=== PATIENT | female | born 1995 | race Caucasian/White ===

== ENCOUNTER → 2016-12-31 | Outpatient (CLI) | payer BC | END | disposition home or self-care (01) | LOC: C.PAPS 09:47 | PROVIDERS: ATTEND Obstetrics & Gynecology | DX: Z01.419 Encounter for gynecological examination (general) (routine) without abnormal findings (principal) ==

== ENCOUNTER → 2017-02-11 | Outpatient (CLI) | payer BC ==
--- NOTE | 2017-02-11 11:56 | DIAGNOSTIC IMAGING REPORT ---
FUSION CT SINUSES W/O HISTORY: 21 years-old Female J32.9 Chronic sinusitis COMPARISON: Radiographs of the sinuses 02/29/2012 TECHNIQUE: Multiple axial CT images of the paranasal sinuses were obtained without contrast. Keynoir images also submitted. A dose lowering technique was used consistent with the principals of RENNY. FINDINGS: The mastoid air cells and middle ear cavities are clear. There is mild mucoperiosteal thickening of the bilateral maxillary sinuses. There is severe mucosal thickening of the right sphenoid sinus which is nearly completely opacified containing central bubbly secretions. There is only minimal mucosal thickening of the left sphenoid sinus. Minimal mucosal thickening is present within the inferior frontal sinuses which are otherwise clear. There is mild anterior and moderate posterior ethmoid sinus disease with mucosal thickening and bubbly secretions of the posterior ethmoid air cells. There is mild left and moderate right narrowing of the sphenoethmoidal recesses secondary to aforementioned mucosal disease. The bilateral frontoethmoidal recesses are patent. There is minimal mucosal thickening of the right maxillary ostiomeatal unit and the left is patent. Nasal septum is midline. The cyndie homer appears normal. No Rosangela cell identified. No large damaris bullosa. Soft tissues are unremarkable. Image intracranial structures demonstrate no acute abnormality. IMPRESSION: 1. Paranasal sinus disease as detailed above, most pronounced within the right sphenoid and bilateral posterior ethmoid air cells resulting in narrowing of the bilateral sphenoethmoidal recesses. 2. Only mild mucoperiosteal thickening of the bilateral maxillary sinuses and inferior frontal sinuses with patency of the maxillary ostiomeatal units. The above report was generated using voice recognition software. It may contain grammatical, syntax or spelling errors. Electronically signed by: Juan Hammer M.D. 02/11/2017 11:55 AM Dictated Date/Time: 02/11/2017 11:47 AM
== END | disposition home or self-care (01) ==
LOC: C.CTS 11:12
DX: J32.9 Chronic sinusitis, unspecified (principal)

== ENCOUNTER → 2017-03-05 | Outpatient (CLI) | payer BC ==
[~2017-03-05] MED LIST: BCPILLS PO; LEVO1TAB34 PO; PRED10TA PO
[2017-03-05 14:37] LABS: BASO % 0.6 %; BASO ABS # 0.05 K/uL (0-0.2); EOS ABS # 0.09 K/uL (0-0.5); HEMATOCRIT 37.9 % (37-47); HEMOGLOBIN 12.5 g/dL (12.0-16.0); IG# 0.04 K/uL (0.00-0.02); LYMPH % 26.9 %; LYMPH ABS # 2.41 K/uL (1.2-3.4); MEAN CELL VOLUME 90.2 fL (80-100); MEAN CORPUSCULAR HEMOGLOBIN 29.8 pg (25-34); MEAN PLATELET VOLUME 9.8 fL (7.4-10.4); MONO % 6.3 %; MONO ABS # 0.56 K/uL (0.11-0.59); NEUT % 64.8 %; NEUT ABS # 5.81 K/uL (1.4-6.5); PLATELET COUNT 203 K/uL (130-400); RED CELL DISTRIBUTION WIDTH CV 13.5 % (11.5-14.5); RED CELL DISTRIBUTION WIDTH SD 44.6 fL (36.4-46.3); WHITE BLOOD COUNT 8.96 K/uL (4.8-10.8)
[2017-03-05 14:46] LABS: PTT PATIENT 25.7 SECONDS (21.0-31.0)
[2017-03-05 15:02] LABS: POTASSIUM 3.5 mmol/L (3.5-5.1)
== END | disposition home or self-care (01) ==
LOC: C.LAB 13:21
DX: Z01.818 Encounter for other preprocedural examination (principal)

== ENCOUNTER → 2017-03-22 | Day surgery (SDC) | payer BC ==
[2017-02-20 15:26] VITALS: Ht 160 cm; Wt 61.4 kg
[~2017-03-22] VITALS: Ht 160 cm; Wt 61.4 kg
[~2017-03-22] MED LIST changes: +ATROPINE SULFATE 0.1 MG/ML 5ML SYR IV PRN; +CLINDAMYCIN PHOS 150 MG/ML 2 ML VIAL IV SCH; +DEXAMETHASONE SOD INJ 4 MG/ML VIAL IV PRN; +DEXAMETHASONE SOD INJ 4 MG/ML VIAL ONE; +EpHEDrine SULFATE INJ 50 MG/ML AMP IV PRN; +EpINEphrine INJ 1MG/ML AMP 1 MG/ML AMP ONE; +FENTANYL CITRATE INJ 50 MCG/1 ML 2 ML VIAL IV PRN; +FENTANYL CITRATE INJ 50 MCG/1 ML 2 ML VIAL ONE; +GLYCOPYRROLATE INJ 0.2 MG/ML VIAL ONE; +HYDROCODONE/ACETAMIN 5/325MG TAB PO PRN; +KETOROLAC TROMETHAMINE 30 MG/ML VIAL IV. PRN; +LABETALOL HCL IV 5 MG/ML 20ML IV PRN; +LACTATED RINGER'S 1000ML 1,000 ML IV SCH; +LIDOCAINE 4% MPF SOAK 5 ML = 1 DOSE TOP ONE; +LIDOCAINE/EPINEPHRINE 1% INJ 50 ML VIAL ONE; +METOCLOPRAMIDE HCL INJ 5 MG/ML 2 ML VIAL IV PRN; +MIDAZOLAM HCL 1 MG/ML 2ML VIAL ONE; +MoRPHine SULFATE 10 MG/ML CARP/VIAL IV PRN; +NEOSTIGMINE METHYLSULFATE 5 MG/5 ML SYR ONE; +ONDANSETRON INJ 2 MG/ML 2 ML VIAL IV PRN; +ONDANSETRON INJ 2 MG/ML 2 ML VIAL ONE; +OXYMETAZOLINE HCL 0.05% NA SPR 15 ML BTL PRN; +OXYMETAZOLINE HCL 0.05% NA SPR 15 ML BTL SCH; +PHENYLEPHRINE 100MCG/ML 5ML SYR IV PRN; +PROPOFOL IV EMULSION 10 MG/ML 20 ML VIAL IV ONE
--- NOTE | 2017-03-22 12:33 | History and Physical: Surg Cnt ---
History & Physical Date Mar 22, 2017. Chief Complaint CHRONIC SINUSITIS AND BILATERAL INFERIOR TURBINATE HYPERTROPHY History of Present Illness The patient is a 22 year old female with complaints of CHRONIC SINUSITIS AND BILATERAL INFERIOR TURBINATE HYPERTROPHY UNRESPONSIVE TO MAXIMAL MEDICAL RX. Past Medical/Surgical History PMH: ABOVE PSH: S/P TONSILLECTOMY, S/P WISDOM TEETH EXTRACTION Additional History Hepatic Disease: No Endocrine Disorder: No Kidney Disease: No Hypertension: No Heart Disease: No Bleeding Tendencies: No Infectious Diseases: No Allergies Coded Allergies: Cephalexin (Verified Allergy, Unknown, rash, 03/22/17) Home Medications Scheduled Control Pills ( Control Pills), 1 TAB PO HS Physical Examination Skin: warm/dry, no rash ENT: normal ENT inspection, pharynx normal, + pertinent finding (B ITH) Head: normocephalic, atraumatic Neck: supple, no adenopathy, trachea midline Respiratory/Chest: lungs clear, normal breath sounds, no respiratory distress Cardiovascular: regular rate, rhythm, no edema, no murmur Neurologic/Psych: no motor/sensory deficits, alert, normal reflexes, oriented x 3 Diagnosis CHRONIC SINUSITIS AND BILATERAL INFERIOR TURBINATE HYPERTROPHY Plan of Treatment IMAGE-GUIDED B FESS AND INF TURB REDUCTION
--- NOTE | 2017-03-22 13:39 | [facility] Operative Report ---
Operative Report Operative Date Mar 22, 2017. Pre-Operative Diagnosis Chronic Sinusitis, Bilateral Inferior Turbinate Hypertrophy Post-Operative Diagnosis Same Procedure(s) Performed Bilateral Image Guided Endoscopic Sinus Surgery With Bilateral Inferior Turbinate Reduction Surgeon Dr. Cline Risk Modeler Surgeon(s) None Estimated Blood Loss 5 mL Findings 1. MODERATE MUCOSAL THICKENING RIGHT SPHENOID SINUS 2. MILD MUCOSAL THICKENING OF ALL OF THE OTHER PARANASAL SINUSES 3. MODERATE B ITH Specimens None I attest to the content of the Intraoperative Record and any orders documented therein. Any exceptions are noted below.
--- NOTE | 2017-03-22 13:41 | Discharge Instructions ---
Discharge Instructions Date of Service Mar 22, 2017. Admission Reason for Admission: Chronic Sinusitis, Hypertrophy Inferior Nasal Turb Discharge Discharge Diagnosis / Problem: SAME Discharge Goals Goal(s): Therapeutic intervention Activity Recommendations Activity Limitations: as noted below LIGHT ACTIVITY FOR 2 WEEKS; NO DRIVING WHILE ON NORCO . Current Hospital Diet Patient's current hospital diet: Discharge Diet Recommended Diet: Regular Diet Procedures Procedures Performed: Bilateral Image Guided Endoscopic Sinus Surgery With Bilateral Inferior Turbinate Reduction Pending Studies Studies pending at discharge: no Medical Emergencies . Who to Call and When: Medical Emergencies: If at any time you feel your situation is an emergency, please call 911 immediately. . Non-Emergent Contact Non-Emergency issues call your: Surgeon . . "Provider Documentation" section prepared by Chas Cline. . VTE Core Measure Inpt VTE Proph given/why not?: SCD's
[2017-03-22 14:21] VITALS: TEMP 36.8
[2017-03-22 14:58] VITALS: BP 112/73; PULSE 51; O2SAT 98
--- NOTE | 2017-03-22 15:01 | OPERATIVE REPORT ---
DATE OF OPERATION: 03/22/2017 PREOPERATIVE DIAGNOSES: 1. Chronic rhinosinusitis. 2. Bilateral inferior turbinate hypertrophy. POSTOPERATIVE DIAGNOSES: 1. Chronic rhinosinusitis. 2. Bilateral inferior turbinate hypertrophy. PROCEDURES: iExplore fusion image guided endoscopic sinus surgery consisting of: 1. Bilateral maxillary antrostomies. 2. Bilateral complete ethmoidectomies. 3. Bilateral balloon sinuplasty assisted frontal sinusotomies. 4. Bilateral sphenoidotomies. 5. Bilateral inferior outfracture and turbinoplasty. SURGEON: Dr. Chas Cline. ANESTHESIA: General endotracheal. ESTIMATED BLOOD LOSS: 5 mL FINDINGS: 1. Moderate mucosal thickening involving the right sphenoid sinus. 2. Mild mucosal thickening involving all the other paranasal sinuses bilaterally. 3. Moderate bilateral inferior turbinate hypertrophy. SPECIMENS: None. COMPLICATIONS: None. INDICATIONS FOR THE PROCEDURE: The patient is a pleasant 22-year-old female with a history of recurrent acute and chronic rhinosinusitis, which has been unresponsive to maximal medical therapy including systemic antibiotics and steroids. A posttreatment fusion CT scan of the sinuses revealed pansinusitis with most of the significant findings involving the right posterior ethmoid air cells and sphenoid sinus. She presents for the above-mentioned procedures on an outpatient elective basis. DESCRIPTION OF PROCEDURE: After informed consent had been obtained from the patient, the patient was wheeled to the operating room and placed on the operating table in the supine position. Monitors were placed. After induction of general endotracheal anesthesia, the patient was prepped in usual fashion for image guided endoscopic sinus surgery. The iExplore fusion headset was placed over the forehead and was registered, verified, and calibrated and used throughout the case, especially the frontal and sphenoid sinus portions. Lidocaine and epinephrine pledgets were placed in the bilateral nasal cavities and pressure applied. The left-sided pledget was removed. A freer elevator was used to medialize the middle turbinate. The middle turbinate and uncinate process were injected with 1% lidocaine with 1:100,000 epinephrine. A lidocaine and epinephrine pledget was then placed into the left middle meatus. The left-sided pledgets were removed. An uncinatectomy was performed using a freer elevator, straight Thru-Cut forceps, and powered instrumentation. The natural ostium of the maxillary sinus was identified and this was enlarged anteriorly, inferiorly, and posteriorly using backbiting forceps and powered instrumentation. A complete ethmoidectomy was then performed using powered instrumentation. A left sphenoidotomy was performed via a transnasal approach and the medial and inferior aspect of the sphenoid sinus ostium was enlarged using powered instrumentation. A curved frontal sinus suction was then used to cannulate the left frontal sinus. A #6 frontal sinus balloon was then inflated to 12 atmospheres of pressure in 2 different locations to dilate the frontal recess tract. The balloon was removed. Powered instrumentation was used to perform a left frontal sinusotomy. Of note, there was mild mucosal thickening involving all of the above-mentioned paranasal sinuses. A lidocaine and epinephrine pledget was then placed into the left ethmoid cavity. The right side was then addressed in a similar fashion with similar intraoperative findings except on this side, the right sphenoid sinus had a moderate amount of mucosal thickening. A Thompson elevator was then used to infracture and subsequently outfracture the inferior turbinates bilaterally. The inferior turbinates were injected with 1% lidocaine with 1:100,000 epinephrine. Using a 2.0 mm turbinate blade and powered instrumentation, bilateral inferior turbinoplasties in a submucosal fashion were performed. The sinonasal cavities were then suctioned. Merogel was then placed into the bilateral ethmoid sinuses and middle meati. An orogastric tube was placed and the stomach was suctioned free of air and stomach contents. This marked the end of the case. The patient tolerated the procedure well and there were no apparent complications. The patient was extubated and transferred to the recovery room in stable condition. I attest to the content of the Intraoperative Record and any orders documented therein. Any exception s are noted below.
--- NOTE | 2017-03-22 15:05 | Anesthesia Progress Nt - [facility] ---
Anesthesia Post Op Note Date & Time Mar 22, 2017 at 15:05 Vital Signs Pain Intensity: 2 Vital Signs Past 12 Hours Date Time Temp Pulse Resp B/P (MAP) Pulse Ox O2 Delivery O2 Flow Rate FiO2 03/22/17 14:58 51 20 112/73 (86) 98 Room Air 03/22/17 14:21 36.8 53 20 124/81 (95) 100 Room Air 03/22/17 14:17 59 14 94 03/22/17 14:17 56 14 03/22/17 14:15 37.3 54 12 117/75 99 Room Air 03/22/17 14:15 117/75 03/22/17 14:12 56 17 97 03/22/17 14:12 56 17 03/22/17 14:10 114/69 03/22/17 14:07 54 17 03/22/17 14:07 53 17 98 03/22/17 14:05 117/69 03/22/17 14:02 55 23 99 03/22/17 14:02 55 23 03/22/17 14:00 116/70 03/22/17 13:57 56 17 03/22/17 13:57 56 17 99 03/22/17 13:56 69 13 03/22/17 13:56 70 13 100 03/22/17 13:55 120/68 03/22/17 13:51 67 15 03/22/17 13:51 67 15 99 03/22/17 13:50 119/61 03/22/17 13:46 37.0 85 16 124/66 99 Humidified Oxygen 6 Diffusion Mask 03/22/17 13:46 81 124/66 99 03/22/17 13:46 81 03/22/17 11:08 36.8 56 18 120/77 (91) 100 Room Air Notes Mental Status: alert / awake / arousable, participated in evaluation Pt Amnestic to Procedure: Yes Nausea / Vomiting: adequately controlled Pain: adequately controlled Airway Patency, RR, SpO2: stable & adequate BP & HR: stable & adequate Hydration State: stable & adequate Anesthetic Complications: no major complications apparent
== END | disposition home or self-care (01) ==
LOC: X.SURG 10:58
DX: J32.9 Chronic sinusitis, unspecified (principal); J34.3 Hypertrophy of nasal turbinates; Z90.89 Acquired absence of other organs; Z79.3 Long term (current) use of hormonal contraceptives

== ENCOUNTER 2024-01-26 19:15 | Inpatient (IN) ==
[2024-01-26] MEDS ORDERED: OXYTOCIN 30 UNITS/NSS 30 UNITS/500 ML BAG IV PRN (20:01)
[2024-01-26] MEDS ORDERED: LIDOCAINE 1% LOCAL 20 ML VIAL INFIL PRN (20:01)
--- NOTE | 2024-01-26 20:06 | History & Physical Report ---
Date of Service January 26, 2024 Assessment & Plan (1) Supervision of normal first : Plan: Admit to L&D. Labs, EFM, toco. Will start pitocin to augment. OK for epidural when she desires. History of Present Illness Chief Complaint: rupture of membranes Primary Care Provider: NO PCP 28yo @ 39 03/03, with gush of clear fluid around 4:15pm today. Not really feeling contractions. + movement. No vaginal bleeding. Home Medications Medication Instructions Recorded Confirmed Type kxmhkntv-[id number]-Bx-FA 1 mg 1 tab PO DAILY 01/26/24 01/26/24 History tablet Patient History Medical History (Updated 01/22/24 @ 15:43 by Leighann Fuller MD, FACOG) Varicella vaccination Surgical History (Updated 01/22/24 @ 14:44 by Hilary Hancock RN) S/P wisdom tooth extraction 2011 S/P sinus surgery 2018 Family History (Updated 12/06/23 @ 11:00 by Tiffany Alvarenga) Grandmother (Paternal) Breast cancer Father Hypertension A-fib Sister Endometriosis Crohn's disease Denies family history of Ovarian cancer Colorectal cancer Social History (Updated 12/06/23 @ 11:12 by Tiffany Alvarenga) Smoking Status: Never smoker Do You Dip or Chew Tobacco: No; Hx Alcohol Use: No Hx Substance Use: No Preferred Language: Montserratian Communication Ability: Effective Referral Agent Required: No Beliefs That Will Affect Care: None marital status: marital status details: Rigoberto Ashford(28) [phone] Current Living Situation: Spouse Current Living Situation Comment: Patient lives with spouse and a dog. current occupational status: employed current occupation: [employer] Other Information That Helps Us Care for You: No Feels Safe at Home: Yes Safety Concerns: Feels Safe At This Time Assistive Devices: None Review of Systems All systems reviewed & are unremarkable except as noted in HPI & below Physical Exam Physical Exam: FHT Cat 1 Rose Bud occasional SVE 2/80/-2, grossly ruptured. Cephalic by exam. Constitutional: WD/WN, vitals as above Respiratory: normal respiratory effort, lungs clear to auscultation no respiratory distress Cardiovascular: Rate/Rhythm: regular rate and regular rhythm Gastrointestinal (Abdomen): Inspection/Auscultation: abdomen normal to inspection Percussion/Palpation: abdomen soft; abdomen nontender Gravid. No s/s chorio or abruption. Skin: no rashes, warm and dry Psychiatric: A+Ox3, euthymic affect Results & Data Vital Signs (Past 12 Hours) Vital Signs Temp Pulse Resp BP 01/26/24 19:35 83 127/82 01/26/24 19:24 36.9 C 18 Coding Level of Care Code None Diagnoses Supervision of normal first Z34.00
[2024-01-26] MEDS ORDERED: Patient's ALLERGY Info needs ENTERED SCH (20:15)
[2024-01-26 20:23] LABS: Hematocrit (blood only) 33.6 % (37.0-47.0); Hemoglobin 11.6 g/dl (12.0-16.0); Mean Corpuscular Hemoglobin 30.4 pg (25.0-34.0); Mean Corpuscular Hgb Conc 34.5 g/dL (32.0-36.0); Mean Corpuscular Volume 88.2 fL (80.0-100.0); Mean Platelet Volume 10.8 fL (9.4-12.4); Platelet Count 178 K/uL (130-400); RDW Standard Deviation 41.5 fL (36.4-46.3); Red Blood Count 3.81 M/uL (4.20-5.40)
[2024-01-26] MEDS: LACTATED RINGER'S 1,000 ML IV SCH (20:39)
[2024-01-26] MEDS: OXYTOCIN 30 UNITS/NSS 30 UNITS/500 ML BAG IV PRN (20:39)
[2024-01-27] MEDS: fentANYL 2 MCG/ML BUPIVacaine 0.125%-NSS 100ML BAG ONE (00:37)
--- NOTE | 2024-01-27 00:54 | Anesthesiology Consultation ---
Date of Service January 27, 2024 Assessment & Plan Chart Review Chart Review: Acceptable Risk for Labor Epidural Consults Requested none History Height/Weight Height: 5 ft 3 in Weight: 79.379 kg Allergies Allergy/AdvReac Type Severity Reaction Status Date / Time No Known Allergies Allergy Unverified 01/26/24 20:17 Medications Home Medications Medication Instructions Recorded Confirmed Last Taken vdczvsht-upe-Oz-FA 1 mg 1 tab PO DAILY 01/26/24 01/26/24 01/26/24 tablet Active Medications Generic Name Dose Route Start Last Admin Trade Name Freq PRN Reason Stop Dose Admin Oxytocin 30 units in 500 mls @ 9 mls/hr 01/26/24 20:01 01/26/24 23:01 Pitocin 30 Units/Nss IV 01/28/24 20:00 0.54 units/hr .Q24H PRN 9 mls/hr Labor Induction/Augmentation Titration Protocol 0.54 UNITS/HR Lactated Ringer's 1,000 mls @ 125 mls/hr 01/26/24 20:45 01/27/24 00:24 Lr IV 01/27/24 20:44 50 mls/hr .Q8H LOUISA Infusion Past Medical History Medical History (Updated 01/22/24 @ 15:43 by Leighann Fuller MD, FACOG) Varicella vaccination Past Family History Family History (Updated 12/06/23 @ 11:00 by Tiffany Alvarenga) Grandmother (Paternal) Breast cancer Father Hypertension A-fib Sister Endometriosis Crohn's disease Denies family history of Ovarian cancer Colorectal cancer Past Surgical History Surgical History (Updated 01/22/24 @ 14:44 by Hilary Hancock RN) S/P wisdom tooth extraction 2012 S/P sinus surgery 2018 Social History Smoking Status: Never smoker Do You Dip or Chew Tobacco: No Hx Alcohol Use: No Hx Substance Use: No substance use type: does not use Physical Exam Vital Signs Last Vital Signs Temp 37.1 C 01/27/24 00:35 Pulse 80 01/27/24 00:48 Resp 18 01/27/24 00:40 BP 127/64 01/27/24 00:43 Pulse Ox 98 01/27/24 00:48 Testing Laboratory Results 01/26/24 20:10
[2024-01-27] MEDS ORDERED: fentANYL 2 MCG/ML BUPIVacaine 0.125%-NSS 100ML BAG EPI PRN (00:55)
[2024-01-27] MEDS ORDERED: diphenhydrAMINE 50 MG/ML VIAL IV PRN (00:55)
[2024-01-27] MEDS ORDERED: NALOXONE HCL 1 MG in SODIUM CHLORIDE 0.9% 1,000 ML IV PRN (00:55)
[2024-01-27] MEDS ORDERED: BUPIVACAINE 0.25% PF 30 ML VIAL EPI PRN (00:55)
[2024-01-27] MEDS ORDERED: NALBUPHINE HCL INJ 10 MG/ML AMP IV PRN (00:55)
[2024-01-27] MEDS ORDERED: ROPIVACAINE 0.5% PF 5 MG/ML 20 ML VIAL EPI PRN (00:55)
[2024-01-27] MEDS ORDERED: NALOXONE HCL 0.4 MG/1 ML VIAL/CARP IV PRN (00:55)
[2024-01-27] MEDS ORDERED: LIDOCAINE 2% MPF LOCAL 5 ML VIAL EPI PRN (00:55)
[2024-01-27] MEDS ORDERED: ePHEDrine sulfate 50 MG/ML AMP IV PRN (00:55)
[2024-01-27] MEDS ORDERED: SODIUM CHLORIDE 0.9% PF INJ 10 ML VIAL EPI PRN (00:55)
[2024-01-27] MEDS: fentaNYL citrate PF 100 MCG/2 ML VIAL ONE (01:07)
[2024-01-27] MEDS: LIDOCAINE 2%/EPINEPHRINE 1:200,000 20 ML PF ONE (01:08)
[2024-01-27] MEDS: ePHEDrine sulfate 50 MG/ML AMP ONE (01:08)
[2024-01-27] MEDS: BUPIVACAINE 0.25% PF 30 ML VIAL ONE (01:08)
[2024-01-27] MEDS: SODIUM CHLORIDE 0.9% PF INJ 10 ML VIAL ONE (01:08)
[2024-01-27] MEDS: fentaNYL citrate PF 100 MCG/2 ML VIAL EPI PRN (03:52)
--- NOTE | 2024-01-27 03:55 | Anesthesia Procedure Note ---
Date of Service January 27, 2024 Anesthesia Epidural Re-Dose Vital Signs Temp Pulse Resp BP Pulse Ox 37.1 C 95 H 18 119/70 97 01/27/24 02:37 01/27/24 03:53 01/27/24 02:37 01/27/24 03:45 01/27/24 03:53 Notes Pain Intensity: 7 Dilatation (cm): 9.0 Effacement (%): 100 Called by nursing to evaluate epidural as the patient is having increased pain. The epidural was re-dosed with the following medications (all medications via epidural route) after negative aspiration of the epidural catheter for CSF/HEME. 2% lidocaine 5ml with fentanyl 100mcg. After Epidural Re-Dose Mental Status: alert / awake / arousable Pain: improving with treatment Airway Patency, RR, SpO2: stable & adequate BP & HR: stable & adequate
[2024-01-27] MEDS: BUPIVACAINE 0.25% PF 30 ML VIAL EPI STA (04:08)
[2024-01-27] MEDS: fentaNYL citrate PF 100 MCG/2 ML VIAL EPI STA (04:08)
[2024-01-27] MEDS: LIDOCAINE 2%/EPINEPHRINE 1:200,000 20 ML PF EPI STA (04:09)
[2024-01-27] MEDS: SODIUM CHLORIDE 0.9% PF INJ 10 ML VIAL EPI STA (04:09)
--- NOTE | 2024-01-27 06:39 | Delivery Summary ---
Vaginal Delivery Summary Date of Service January 27, 2024 Vaginal Delivery Summary and 1st Degree LAC Vaginal Delivery Summary: Pre-delivery diagnoses: 28yo @ 39 2/, spontaneous labor Post-delivery diagnoses: same Procedure: spontaneous vaginal delivery Surgeon: Nita Rust DO Complications: none Findings: Viable female . Apgars: 7/9. Weight pending, please see nursery records Estimated QBL: 160cc Description of delivery: The patient progressed to complete with epidural anesthesia. She then began to push. She spontaneously vaginally delivered a viable from the cephalic presentation. The head delivered in ISIDORO position. The anterior shoulder delivered, followed by the posterior shoulder, followed by the body. The baby was placed on mother's abdomen and a spontaneous cry was heard. Delayed cord clamping was employed, and the cord was doubly clamped and cut. Cord blood was obtained. The placenta was delivered spontaneously intact with a 3-vessel cord. The uterus and vagina were swept of clots and debris. IV pitocin was given. The uterus became firm. The cervix, vagina, and perineum were inspected. Right periurethral laceration and 1st degree perineal laceration repaired with 3-0 Vicryl. Red rubber catheter placed during repair - sutures far from urethra. Excellent hemostasis was observed. The mother and baby are recovering in stable and good condition in the room. Sponge, needle and instrument counts were correct x 2. Nita Rust DO [facility] Vaginal Delivery Charge Vaginal Delivery Codes: 43793 global code for the antepartum, delivery, and post- Delivery Type Details: and 1st Degree LAC
[2024-01-27] MEDS ORDERED: ACETAMINOPHEN 325 MG TAB PO PRN (06:47)
[2024-01-27] MEDS ORDERED: oxyCODONE/ACETAMINOPHEN 5mg/325mg TAB PO PRN (06:47)
[2024-01-27] MEDS ORDERED: HYDROCORTISONE ACETATE 25 MG SUPP PR PRN (06:47)
[2024-01-27] MEDS ORDERED: OXYTOCIN 30 UNITS/NSS 30 UNITS/500 ML BAG IV PRN (06:47)
[2024-01-27] MEDS: ONDANSETRON INJ 2 MG/ML 2 ML VIAL IV PRN (07:12)
--- NOTE | 2024-01-27 08:58 | Anesthesia Procedure Note ---
Date of Service January 27, 2024 Anesthesia Post Epidural Note Vital Signs Vital Signs: Temp Pulse Resp BP Pulse Ox O2 Del Method 37.3 C 84 16 133/73 93 Room Air 01/27/24 07:00 01/27/24 08:50 01/27/24 07:00 01/27/24 08:50 01/27/24 06:25 01/27/24 06:35 Notes Mental Status: alert / awake / arousable Nausea / Vomiting: adequately controlled Pain: adequately controlled Airway Patency, RR, SpO2: stable & adequate BP & HR: stable & adequate Hydration State: stable & adequate Neuraxial Anesthesia: was administered and sensory block is resolving Anesthetic Complications: no major complications apparent and Pt Satisfied with anesthetic care Epidural: Removed without complications and With tip intact
[2024-01-27] MEDS: BENZOCAINE 20% SPRY 85 APPLN/85 GM CAN EXT PRN (10:19)
[2024-01-27] MEDS: PRENATAL VITAMIN 1 TAB PO SCH (10:19)
[2024-01-27] MEDS: DOCUSATE SODIUM 100 MG CAP PO SCH (10:19)
[2024-01-27] MEDS: DIPHTHER/TETAN/PERTUS Vaccine (Tdap, Adol/Adult) 0.5mL IM ONE (11:14)
[2024-01-27] MEDS: IBUPROFEN 600 MG TAB PO PRN (13:50)
--- NOTE | 2024-01-28 05:54 | Obstetrical Progress Note ---
Date of Service January 28, 2024 Assessment & Plan (1) Encounter for care and examination after delivery: Plan Encourage ambulation Encourage breast feeding Pain meds as needed Anticipate DC to home on 01/29/24 Admission and Anticipated Discharge Date Admission Date: January 26, 2024 Supervising Physician Co-Signing Physician Notes Patient seen with resident and agree with the above findings and plan. Patient doing well. Routine care Subjective Pt is 28 yo post- day 1 s/p at 39w1d Ambulation:In and out of room Voiding:voiding normally Passing gas: yes BM: no Diet tolerance:regular diet Lochia:bloody, no clots Feeding type: breast Current pain level: 0-3 /10 improved with ibuprofen Resting comfortably this morning in NAD. Denies BETTENCOURT, CP, SOB, V/D, LE pain/swelling. Pt reports nausea post delivery, but better this morning. Review of Systems Review of Systems: As per HPI Physical Exam Constitutional: WD/WN, vitals as above Respiratory: normal respiratory effort, lungs clear to auscultation Cardiovascular: Rate/Rhythm: regular rate and regular rhythm Extremities: + edema (trace at bilateral ankles) Gastrointestinal (Abdomen): normal bowel sounds, soft, nontender, no hepatosplenomegaly Uterine fundus firm and at 1 cm below umbilicus Neurologic: PERRL, EOMI, accommodation nl, no face palsy, no dysarthria Moving all 4 extremities on command Psychiatric: A+Ox3, euthymic affect Results & Data Vital Signs (Past 12 Hours) Vital Signs Temp Pulse Resp BP O2 Del Method 01/28/24 04:20 36.8 C 75 16 113/71 Room Air 01/27/24 23:41 36.6 C 73 18 120/71 01/27/24 20:15 36.6 C 76 18 134/74 Resident Activity Tracking Resident Involvement: Resident Care Provided Care Provided: Adult Hospital Medicine
[2024-01-28 06:21] LABS: Hematocrit (blood only) 31.3 % (37.0-47.0); Hemoglobin 10.5 g/dl (12.0-16.0)
[2024-01-28] MEDS: bisacodyL 5 MG TABEC PO SCH (21:34)
[2024-01-29] MEDS ORDERED: bisacodyL 10 MG SUPP PR PRN
[2024-01-29 00:16] VITALS: TEMP 97.9
--- NOTE | 2024-01-29 05:17 | Obstetrical Progress Note ---
Date of Service January 29, 2024 Assessment & Plan (1) Encounter for care and examination after delivery: Plan Encourage ambulation Encourage breast feeding Pain meds as needed Anticipate DC to home today Admission and Anticipated Discharge Date Admission Date: January 26, 2024 Supervising Physician Co-Signing Physician Notes Resident Physician Supervision Note: I interviewed and examined the patient. Discussed with Dr. Mayers and agree with findings and plan as documented in the note. Any exceptions or clarifications are listed here: PP2 s/p , dc home Documented By: Iveth Marie MD Subjective Pt is 28 yo post- day 2 s/p at 39w1d Ambulation:In and out of room Voiding:voiding normally Passing gas: yes BM: yes Diet tolerance:regular diet Lochia:bloody, no clots Feeding type: breast Current pain level: 0-2 /10 improved with ibuprofen Resting comfortably this morning in NAD. Denies BETTENCOURT, CP, SOB, V/D, LE pain/swelling. Pt reports nausea post delivery, but better this morning. Review of Systems Review of Systems: As per HPI Physical Exam Constitutional: WD/WN, vitals as above Respiratory: normal respiratory effort, lungs clear to auscultation Cardiovascular: RRR, no murmur, no edema Rate/Rhythm: regular rate and regular rhythm Extremities: + edema (trace at bilateral ankles) Gastrointestinal (Abdomen): normal bowel sounds, soft, nontender, no hepatosplenomegaly Uterine fundus if firm and 2 cm below umbilicus Neurologic: PERRL, EOMI, accommodation nl, no face palsy, no dysarthria Psychiatric: A+Ox3, euthymic affect Results & Data Vital Signs (Past 12 Hours) Vital Signs Temp Pulse Resp BP Pulse Ox O2 Del Method 01/29/24 00:15 36.6 C 74 16 129/82 99 Room Air 01/28/24 19:30 37.0 C 90 16 131/77 99 Room Air Resident Activity Tracking Resident Involvement: Resident Care Provided Care Provided: Adult Hospital Medicine
[2024-01-29 09:02] VITALS: BP 129/76; PULSE 72; RESP 18; O2SAT 96
== END 2024-01-29 11:34 | disposition home or self-care (01) | DRG 807 ==
LOC: OPB 19:15 → 4S1 19:16 → 4E2 01-27 09:11